=== PATIENT | female | born 1985 | race Caucasian/White ===

== ENCOUNTER 2021-04-30 13:00 | Emergency (ER) | payer OTHER ==
[~2021-04-30] VITALS: Ht 170.2 cm; Wt 68.0 kg
[~2021-04-30 13:00] MED LIST: ASPIRIN81 M2; CELEXA40 MG PO; FLOMAX0.4 MG PO; FOLIC ACID0.4 MG; IBUPROFEN 800800 MG PO; NAPROSYN500 MG PO; NITROFURANTOIN100 MG PO; NORCO 5-325 TA1 EACH PO; NORFLEX100 MG PO; ZOFRAN 4 MG ORAL4 MG PO
[2021-04-30] MEDS ORDERED: ZOLOFT50 M1 PO (13:09)
--- NOTE | 2021-04-30 14:18 | EKG ---
[place] [address] ELECTROCARDIOGRAM REPORT Name: CHILANGO BURR Room: [facility]#: [id number] Admission: 04/30/21 Attend Phys: Discharge: Date of : 81 Date of Service: 04/30/211411 Report #: [id number] THIS REPORT FOR: //name// [facility] ED Test Date: 2021-04-30 Test Time: 14:12:32 Pat Name: CHILANGO BURR Department: Room: Gender: [employer] Floorperson: : [id number] Requested By: Cady Her Order Number: [id number] MD: Arias Larsen Measurements Intervals [place] Rate: 106 P: 61 ID: [id number] QRS: 18 QRSD: 97 T: 42 QT: 335 QTc: 445 Interpretive Statements Sinus tachycardia No previous ECG available for comparison Electronically Signed On 04-30-2021 14:18:09 [employer] by Arias Larsen [email or web address] <ELECTRONICALLY SIGNED> By: Arias Larsen MD, [facility] 04/30/21 1418 1412 1412 Arias Larsen MD, FACC /EPI
[2021-04-30 14:50] LABS: ABSOLUTE EOSINOPHILS 0.1 thou/uL (0.0-0.7); ABSOLUTE LYMPHOCYTES 0.8 thou/uL (0.8-5.3); ABSOLUTE MONOCYTES 0.9 thou/uL (0.0-1.2); ABSOLUTE NEUTROPHILS 8.9 thou/uL (1.6-8.1); BASOPHILS 0.3 %; EOSINOPHILS 1.4 %; HEMATOCRIT 40.9 % (37.0-47.0); HEMOGLOBIN 13.9 gm/dL (12.0-15.0); LYMPHOCYTES 7.3 %; MCH 29.9 pg (26.0-34.0); MCV 87.7 fL (80.0-100.0); MONOCYTES 8.3 %; MPV 6.9 fl. (7.2-11.1); NUCLEATED RBCS 0 /100WBC; PLATELET COUNT* 301 thou/uL (150-400); POLYS 82.7 %; RBC 4.66 mil/uL (4.20-5.00); RDW-CV 12.9 % (10.5-14.5); WBC 10.8 thou/uL (4.0-11.0)
[2021-04-30 14:50] LABS: INFLUENZA A ANTIGEN Negative (Negative); INFLUENZA B ANTIGEN Negative (Negative)
[2021-04-30 14:56] LABS: CALCIUM 8.5 mg/dL (8.5-10.1); CREATININE 0.8 mg/dL (0.6-1.3); POTASSIUM 3.2 mmol/L (3.5-5.1)
[2021-04-30 15:00] LABS: ALBUMIN 3.5 g/dL (3.4-5.0); TOTAL BILIRUBIN 0.3 mg/dL (<0.1-1.0); TOTAL PROTEIN 7.5 g/dL (6.4-8.2)
[2021-04-30] MEDS ORDERED: PREDNISONE 20 M20 M1 PO (16:02)
[2021-04-30] MEDS ORDERED: PROMETH-CODEIN 65 ML PO (16:02)
[2021-04-30] MEDS ORDERED: PROAIR HFA8.5 GM INH (16:02)
[2021-04-30 16:31] LABS: URINE BILIRUBIN NEGATIVE (Negative); URINE BLOOD NEGATIVE (Negative); URINE CLARITY CLEAR; URINE COLOR YELLOW; URINE GLUCOSE-RANDOM NEGATIVE (Negative); URINE KETONES TRACE (Negative); URINE LEUKOCYTES NEGATIVE (Negative); URINE NITRITE NEGATIVE (Negative); URINE PROTEIN NEGATIVE (Negative); URINE SPECIFIC GRAVITY 1.015 (1.005-1.030); URINE UROBILINOGEN 0.2 E.U./dl (0.2-1.0)
[2021-04-30 16:49] VITALS: BP 123/70
== END 2021-04-30 16:50 | disposition home or self-care (01) ==
LOC: M.ERS 13:00
PROVIDERS: Emergency Medicine; Nurse Practitioner Family
DX: J40 Bronchitis, not specified as acute or chronic (principal); Z20.822 Contact with and (suspected) exposure to COVID-19; R55 Syncope and collapse; Z87.442 Personal history of urinary calculi; Z88.2 Allergy status to sulfonamides